=== PATIENT | female | born 1980 | race Caucasian/White ===

== ENCOUNTER 2016-12-31 14:14 | Emergency (ER) | payer SELFPAY ==
[2016-12-31] MEDS ORDERED: KETOROLAC TROMETHAMINE 60 MG/2 ML VIAL IM ONE (15:14)
[2016-12-31] MEDS ORDERED: Lidocaine 1% 5ml(IM or SUTURE)(PAIN CLINIC) IJ ONE (15:14)
[2016-12-31] MEDS ORDERED: cefTRIAXone SODIUM 1 GM VIAL IM ONE (15:14)
[2016-12-31] MEDS ORDERED: DEXAMETHASONE SOD PHOS 4 MG/ML VIAL IM ONE (15:14)
[2016-12-31] MEDS ORDERED: methylPREDNISolone ACETATE 80 MG/ML VIAL IM ONE (15:15)
[2016-12-31 15:57] VITALS: BP 132/86
--- NOTE | 2016-12-31 20:08 | ED Physician Documentation ---
Sore Throat/Dental Pain - HISTORIAN Historian: patient - HPI Stated Complaint: dental pain/ chin abcess Chief Complaint: Dental Pain Additional Information: skin abscess chin Onset: days ago (2) Context: Dental Caries Associated Symptoms: swollen glands Worsened By: nothing Further Comments: no - ROS CONST: no problems CVS/RESP: none GI/: denies: problems urinating, nausea, vomiting MS/SKIN/LYMPH: denies: muscle aches, rash, leg swelling, ankle swelling NEURO/PSYCH: none - PAST HX Past History: other (dental caries, mrsa), gum disease Other History: none Immunizations: referred to PCP Allergies/Adverse Reactions: Allergies Allergy/AdvReac Type Severity Reaction Status Date / Time Penicillins Allergy Severe Chest Pain Verified 12/31/16 14:27 Home Medications: Ambulatory Orders Medication Instructions Recorded CloNIDine HCL [Catapress] 0.2 mg PO HS 12/31/16 DULoxetine HCL [Cymbalta] 30 mg PO DAILY 12/31/16 traZODone HCL [Desyrel] 50 mg PO HS 12/31/16 - SOCIAL HX Smoking History: cigarettes Alcohol Use: none Drug Use: marijuana, methamphetamines - FAMILY HX Family History: No - VITAL SIGNS Vital Signs: Vital Signs Temp Pulse Resp BP Pulse Ox 98.7 F 89 18 132/86 95 12/31/16 15:54 12/31/16 15:54 12/31/16 15:54 12/31/16 15:54 12/31/16 15:54 - REVIEWED ASSESSMENTS Nursing Assessment Reviewed: Yes Vitals Reviewed: Yes Progress - Results/Orders Results/Orders: none ordered - Progress Progress: given 1 gram rocephin im in er Critical Care Note - Critical Care Note Total Time (mins): 0 ED Results Lab/Radiology - Lab Results Lab Results: none ordered - Radiology Radiology Impressions: none ordered - Orders Orders: ED Orders Category Date Time Status Dexamethasone Sod Phosphate [Decadron] Med 12/31/16 15:14 Discontinued 8 mg IM NOW ONE Ketorolac Tromethamine [Toradol] Med 12/31/16 15:14 Discontinued 60 mg IM NOW ONE Lidocaine 1% 5ml(IM or SUTURE) [Xylocaine] Med 12/31/16 15:14 Discontinued 50 mg IJ NOW ONE cefTRIAXone SODIUM [Rocephin] Med 12/31/16 15:14 Discontinued 1 gm IM NOW ONE methylPREDNISolone ACETATE [Depo-Medrol] Med 12/31/16 15:15 Discontinued 80 mg IM NOW ONE Dental Pain Physical Exam - EXAM General Appearance: alert, moderate distress Head/Neck: head nml inspection, trachea midline Eyes: eyes nml inspection, PERRL Mouth/Throat: lips nml, gums nml, pharynx nml, dental tenderness, widespread dental decay Ear/Nose: nml inspection, TM erythema Respiratory: no resp. distress, breath sounds nml. No: respiratory distress CVS: reg. rate & rhythm, heart sounds nml Abdomen: soft, no organomegaly, normal bowel sounds, no abdominal bruit, no distension, non-tender Extremities: non-tender Skin: warm/dry, normal color, other (abescess chin) Neuro/Psych: No: weakness, numbness, anxiety, depression Discharge Clincal Impression: Cellulitis and abscess of face, Dental caries Referrals: Jenny Hall, PRN [Primary Care Provider] - 2 Days Home Medications: Ambulatory Orders CloNIDine HCL [Catapress] 0.2 mg PO HS 12/31/16 DULoxetine HCL [Cymbalta] 30 mg PO DAILY 12/31/16 traZODone HCL [Desyrel] 50 mg PO HS 12/31/16 Comments: discharged with scripts for bactrim ds 1 p.o. bid Condition: Stable Disposition: 01 HOME, SELF-CARE Decision to Admit: NO Decision Time: 15:50
== END 2016-12-31 15:54 | disposition home or self-care (01) ==
LOC: ED 14:14
DX: K02.9 Dental caries, unspecified (principal)
CPT/HCPCS: J0696; J1040; J1100; J1885; 96372; 99283